=== PATIENT | male | born 1950 | race Caucasian/White ===

== ENCOUNTER → 2018-10-17 09:12 | Outpatient (BNVA) | payer OTHER, SELFPAY | PROVIDERS: PCP Family Medicine; Referring Provider Family Medicine; Visit Provider Orthopaedic Surgery | DX: R69 Illness, unspecified (principal) ==

== ENCOUNTER 2018-10-17 13:20 | Day surgery (SDC) | payer OTHER, SELFPAY ==
[2018-10-17 13:38] VITALS: BP 151/91; PULSE 95; RESP 18; TEMP 36.6; O2SAT 98
[2018-10-17] MEDS: Lidocaine 2% Multi-Dose 50 ML VIAL (14:50)
--- NOTE | 2018-10-17 15:09 | PDOC.DSDIS_ITS ---
Discharge Plan Disposition Patient Disposition: HOME Condition: Good Discharge Details Reason For Visit: TRIGGER LMF release Attending Provider: Wilmer Oswald Primary Care Provider: Carson Souza Home Meds and New Rx's Prescriptions: Continued atorvastatin 20 mg tablet 20 mg PO DAILY Qty: 90 RF: 3 clonazepam 0.5 mg tablet 0.5 mg PO TID MDD 1.5 mg daily PRN (Reason: dizziness or vertigo) 90 Days Qty: 90 RF: 3 omeprazole 20 MG capsule,delayed release(DR/EC) 20 mg PO DAILY RF: 0 Discharge Instructions Additional Instructions: Keep dressings dry for 48 hours. After 48 hours, remove dressing, shower or bathe and get incision wet. Leave incision uncovered when it is dry and sealed. Bend and straighten fingers of R hand 10 times/hour, when awake to prevent swelling and pain. Take tylenol or ibuprofen 800 mg every 6 hours, as needed for pain. Use R hand as much as your discomfort allows. Follow up with in 10-14 days. Referrals: Wilmer Oswald MD [ [facility]] - (f/u in 10-14 days.) Activity:: Activity as Tolerated Remove Dressings/Wound Care:: 48 hours Shower/Bathe:: 48 hours Diet:: As Tolerated Discharge Orders Discharge Orders: Discharge Order (Routine); Ordered 10/17/18 Ordered By: Wilmer Oswald DS: Diagnosis Discharge Diagnosis (1) Trigger finger, left middle finger: Status: Chronic
--- NOTE | 2018-10-18 07:14 | ROE_ITS ---
REPORT OF OPERATIVE PROCEDURE DATE OF PROCEDURE October 17, 2018 PREOPERATIVE DIAGNOSIS Trigger left middle finger. POSTOPERATIVE DIAGNOSIS Trigger left middle finger. PROCEDURE Tendon sheath incision for trigger left middle finger. ANESTHESIA Local infiltration 1% Xylocaine solution and 0.5% Marcaine solution. SURGEON Wilmer Oswald M.D. INDICATIONS This is a 67-year-old while male who is experiencing painful locking of his left middle finger for ov er six months' duration. This is interfering with his work and activities of daily living. Trigger finger release was recommended to alleviate his pain and prevent further locking of the finge r. The risks and complications were explained to the patient in detail preoperatively. DESCRIPTION OF PROCEDURE The patient was taken the Procedure room on October 17, 2018. He was placed supine on the stretcher. Th e left hand was prepped and draped free in usual sterile fashion. I infiltrated over the flexure she ath of the left middle finger with 1% Xylocaine solution. After waiting for a minute, he had good an esthesia. I make a transverse incision centered over the flexor sheath of the left middle finger. It is located about 5 to 6 mm distal to the distal palmar flexion crease. The incision was about 2.5 cm in length. The incision was carried down to the subcu. Blunt tip Littler scissors were used to mobili ze the soft tissues away from the flexor sheath. Heiss Retractor was inserted and the flexor sheath w as clearly visualized. I then incised the proximal shavon of the flexor sheath under direct vision wi th the #15-blade. I then completed the incision of the proximal shavon with Littler scissors subcutan eously and distal. At this point, the retractor was removed. The patient was asked to actively flex a nd extend his left middle finger. He is now able to flex and extend his left middle finger fully with out any locking or catching. The wound was irrigated with saline solution. The wound margins were inf iltrated with 0.5% Marcaine with epinephrine solution. Hemostasis was obtained with simple direct pre ssure. The skin edges were approximated with three interrupted #4-0 Nylon sutures. The wound was markos ssed with Xeroform gauze, sterile gauze 4x4s, and wrapped with a 2-inch cling bandage. The patient t olerated the procedure well. The patient was discharged to the Day [facility] in good condition. The patient was given instructions to bend and straighten his left middle finger 10 times an hour whi le awake to prevent swelling and pain. He is to keep his dressings dry for 48 hours. After 48 hours, he can remove his dressings, shower, bathe and get his incision wet. He may leave the incision uncov ered when it is dry and sealed. He will take Tylenol or ibuprofen for pain if needed. He should foll owup with Dr. Oswald in 10 to 14 days for suture removal.
== END 2018-10-17 15:30 | disposition home or self-care (01) ==
PROVIDERS: PCP Family Medicine; Visit Provider Orthopaedic Surgery
PROC: (CPT 26055; principal; 2018-10-17 15:30)
DX: M65.332 Trigger finger, left middle finger (principal)
CPT/HCPCS: 25000; 99203; 99213

== ENCOUNTER → 2018-10-30 10:44 | Outpatient (BNVA) | payer OTHER, SELFPAY | PROVIDERS: PCP Family Medicine; Referring Provider Family Medicine; Visit Provider Orthopaedic Surgery | DX: Z47.89 Encounter for other orthopedic aftercare (principal); M65.332 Trigger finger, left middle finger ==

== ENCOUNTER 2018-11-26 16:07 | Outpatient (REF) | payer OTHER, SELFPAY ==
[2018-11-26 19:08] LABS: ALT 33 U/L (12-78); AST 18 U/L (15-37); Alkaline Phosphatase 59 U/L (46-116); Anion Gap 11.6 mmol/L (3-11); BUN 13 mg/dL (7-18); CO2 25.4 mmol/L (21.0-32.0); CREATININE 0.95 mg/dL (0.70-1.30); Calcium 8.6 mg/dL (8.5-10.1); Calculated LDL 127 mg/dL; Chloride 103 mmol/L (98-107); Cholesterol 211 mg/dL (50-200); Glucose 105 mg/dL (70-100); HDL Cholesterol 65 mg/dL (40-60); Potassium 4.5 mmol/L (3.5-5.1); Sodium 140 mmol/L (136-145); Total Protein 6.9 g/dL (6.4-8.2); Triglyceride 96 mg/dL (30-150)
[2018-11-28 09:35] LABS: PSA, Screening 2.6 ng/ml (0-4.5)
== END 2018-11-26 16:27 ==
LOC: LBN 16:07
PROVIDERS: PCP Family Medicine; Visit Provider Family Medicine
DX: E78.00 Pure hypercholesterolemia, unspecified (principal); Z12.5 Encounter for screening for malignant neoplasm of prostate
CPT/HCPCS: 80053; 80061; 83721; 84153

== ENCOUNTER → 2024-09-09 09:10 | Outpatient (BNVA) | payer MEDICARE, SELFPAY | PROVIDERS: Visit Provider Nurse Practitioner Gerontology | DX: N28.89 Other specified disorders of kidney and ureter (principal); R31.0 Gross hematuria; N40.0 Benign prostatic hyperplasia without lower urinary tract symptoms; Z80.42 Family history of malignant neoplasm of prostate; R39.9 Unspecified symptoms and signs involving the genitourinary system | CPT/HCPCS: 99205; 81003; 51798 ==

== ENCOUNTER 2024-10-02 01:49 | Outpatient (CLI) | payer MEDICARE, SELFPAY ==
--- NOTE | 2024-10-02 06:45 | DI.MRI_ITS ---
Exam(s) MR ABDOMEN WO/W EXAM: MR ABDOMEN WO/W CLINICAL HISTORY: right renal nodule on CTU,renal mass,n28.89 TECHNIQUE: Multiplanar multisequence MRI of the Abdomen was performed. CONTRAST MATERIAL: IV Contrast: 17 mL of Dotarem contrast administered. COMPARISON: CT CT UROGRAM from 06/14/2024 FINDINGS: Lung bases: Unremarkable. Liver: There are several simple cysts seen in the liver. No suspicious hepatic masses are present. Th e largest cyst is in the left lobe and measures 1.1 cm. Pancreas: Unremarkable. No evidence of a pancreatic mass or ductal dilatation. Gallbladder and Bile Ducts: There is no cholelithiasis or biliary ductal dilatation. Adrenals: Unremarkable. Kidneys: There is a well-circumscribed 0.8 cm cortical round lesion in the superior pole of the right kidney. This corresponds to the finding seen on the CT scan from 06/14/2024. It is hypointense on bot h T1 and T2 weighted images and shows no enhancement following contrast administration. There is no e vidence of hydronephrosis. Spleen: Unremarkable. Bowel: There is no evidence of bowel wall thickening or obstruction. The stomach is incompletely dist ended limiting evaluation. Aorta: Unremarkable. Soft Tissues: Unremarkable. Bone: Unremarkable. Lymph Nodes: Unremarkable. IMPRESSION: 1. 0.8 cm superior pole right renal lesion corresponding to the CT finding. It shows no enhancement a nd is hypointense on both T1 and T2 weighted images. This may represent a renal cyst. A six-month fol low-up MRI of the kidneys without and with contrast is recommended for re-evaluation. DATA REPOSITORY:
[2024-10-02] MEDS: Gadoterate meglumine 20 ML VIAL 17 ML IVP (08:55)
[2024-10-02] MEDS: Normal Saline - Diluent 50 ML VIAL 25 ML IJ (08:56)
== END 2024-10-02 02:09 ==
PROVIDERS: PCP Nurse Practitioner Family; Visit Provider Nurse Practitioner Gerontology
DX: N28.89 Other specified disorders of kidney and ureter (principal)
CPT/HCPCS: 74183

== ENCOUNTER 2024-10-17 01:08 | Outpatient (CLI) | payer MEDICARE, SELFPAY ==
[2024-10-17 22:39] LABS: PSA, Diagnostic 3.9 ng/mL (<=6.5)
== END 2024-10-17 01:09 | disposition home or self-care (01) ==
LOC: LBO 01:08
PROVIDERS: PCP Nurse Practitioner Family; Visit Provider Nurse Practitioner Gerontology
DX: N40.0 Benign prostatic hyperplasia without lower urinary tract symptoms (principal); R31.0 Gross hematuria; Z80.42 Family history of malignant neoplasm of prostate
CPT/HCPCS: 36415; 84153

== ENCOUNTER → 2024-10-22 08:03 | Outpatient (BNVA) | payer MEDICARE, SELFPAY | PROVIDERS: PCP Nurse Practitioner Family; Visit Provider Nurse Practitioner Gerontology | DX: N40.0 Benign prostatic hyperplasia without lower urinary tract symptoms (principal); N28.89 Other specified disorders of kidney and ureter; R31.0 Gross hematuria; Z80.42 Family history of malignant neoplasm of prostate; Z87.891 Personal history of nicotine dependence | CPT/HCPCS: 99213 ==

== ENCOUNTER → 2025-04-07 00:17 | Outpatient (CLI) | payer MEDICARE, SELFPAY ==
--- NOTE | 2025-04-07 07:00 | DI.MRI_ITS ---
Exam(s) MR ABDOMEN WO/W EXAM: MR ABDOMEN WO/W CLINICAL HISTORY: rt renal area monitoring,nodule of kidney,n28.89 TECHNIQUE: Multiplanar multisequence MRI of the Abdomen was performed. CONTRAST MATERIAL: IV Contrast: 17 mL of Dotarem contrast administered. COMPARISON: CT CT UROGRAM from 06/14/2024 MR MR ABDOMEN WO/W from 10/02/2024 FINDINGS: Lung bases: Unremarkable. Liver: Normal size. Multiple small simple liver cysts are again noted. Pancreas: Unremarkable. Gallbladder and Bile Ducts: Unremarkable. Adrenals: Unremarkable. Kidneys: A small area low signal on both T1 and T2 weighted images is again noted at the lateral upper pole of the right kidney. It is difficult to evaluate due to the small size as well as motion. It is less well seen on today's examination. It extends through the cortex and has the appearance of s carring. Spleen: Unremarkable. Aorta: Unremarkable. Soft Tissues: Unremarkable. Bone: Unremarkable. Lymph Nodes: Unremarkable. Stomach and bowel: Unremarkable. Peritoneal cavity: Unremarkable. No evidence of ascites. The bladder is partially visualized on the T2 coronal sequence and there is mild diffuse wall thickening. The prostate and impinges on the base of the bladder. IMPRESSION: The previously noted lesion at the upper pole of the right kidney it is less apparent on the current exam, consistent with a benign process. It has the appearance of scarring. DATA REPOSITORY:
[2025-04-07] MEDS: Gadoterate meglumine 20 ML VIAL IJ (12:30)
[2025-04-07] MEDS: Normal Saline - Diluent 50 ML VIAL IJ (12:30)
[2025-04-07] MEDS: Normal Saline Flush 10 ML SYR IVP (12:31)
== END ==
LOC: DI 00:17
PROVIDERS: PCP Nurse Practitioner Family; Visit Provider Nurse Practitioner Gerontology
DX: N28.89 Other specified disorders of kidney and ureter (principal)
CPT/HCPCS: 74183